=== PATIENT | male | born 1960 | race Caucasian/White ===

== ENCOUNTER 2023-07-02 10:54 | Day surgery (SDC) | payer MEDICAID ==
[~2023-07-02] VITALS: Ht 172.7 cm; Wt 72.8 kg
[2023-07-02] VITALS (8 sets, daily range): BP systolic 119–137; BP diastolic 66–82; PULSE 78–96; RESP 14–21; TEMP 98.4; O2SAT 93–96
[2023-07-02] MEDS ORDERED: CLON0.1T2 PO (11:32)
[2023-07-02] MEDS ORDERED: METO-384 PO (11:32)
[2023-07-02] MEDS ORDERED: LISI40TA13 PO (11:32)
[2023-07-02] MEDS ORDERED: AMLO-708 PO (11:32)
[2023-07-02] MEDS ORDERED: METF-1203 PO (11:32)
[2023-07-02] MEDS ORDERED: ASPI-1468 PO (11:32)
[2023-07-02] MEDS ORDERED: ROSU40TA22 PO (11:32)
[2023-07-02] MEDS ORDERED: CHOL20003 PO (11:32)
[2023-07-02] MEDS ORDERED: FLO0.4C PO (11:32)
[2023-07-02] MEDS ORDERED: HYDR-3686 PO (11:32)
[2023-07-02 11:36] LABS: BASOPHILS % (AUTO) 0.3 % (0-1); EOSINOPHILS # (AUTO) 0.1 X10'3 (0-0.9); EOSINOPHILS % (AUTO) 1.2 % (0-6); HEMATOCRIT 49.1 % (42.0-52.0); HEMOGLOBIN 16.4 g/dl (14.0-17.9); LYMPHOCYTES # (AUTO) 1.9 X10'3 (1.1-4.8); LYMPHOCYTES % (AUTO) 16.7 % (21-51); MEAN CORPUSCULAR HEMOGLOBIN 30.8 PG (27.0-31.0); MEAN CORPUSCULAR HGB CONC 33.5 g/dL (33.0-36.5); MEAN CORPUSCULAR VOLUME 92.2 FL (78-98); MEAN PLATELET VOLUME 7.3 FL (7.4-10.4); MONOCYTES # (AUTO) 0.6 X10'3 (0-0.9); MONOCYTES % (AUTO) 5.4 % (2-12); NEUTROPHILS # (AUTO) 8.7 X10'3 (1.8-7.7); NEUTROPHILS % (AUTO) 76.4 % (42-75); PLATELET COUNT 252 X10'3 (140-440); RED BLOOD COUNT 5.33 X10'6 (4.70-6.10); RED CELL DISTRIBUTION WIDTH 14.1 % (11.5-14.5); WHITE BLOOD COUNT 11.4 X10'3 (4.5-11.0)
[2023-07-02] MEDS ORDERED: LORazepam 0.5 MG tablet PO PRN (12:05)
[2023-07-02] MEDS ORDERED: diphenhydrAMINE 25mg capsule PO PRN (12:05)
[2023-07-02] MEDS ORDERED: normal saline 1,000 ML IV SCH (12:05)
[2023-07-02 12:21] LABS: INR 0.9 INR
[2023-07-02 12:29] LABS: ALBUMIN 4.6 G/DL (3.4-5.0); ANION GAP 16 (8-16); BLOOD UREA NITROGEN 19 MG/DL (7-18); BUN/CREATININE RATIO 16.2 (10.0-20.0); CALCIUM 9.8 MG/DL (8.5-10.1); CHLORIDE 96 MMOL/L (99-107); CREATININE 1.17 MG/DL (0.60-1.10); GLUCOSE 89 MG/DL (70-104); SODIUM 135 MMOL/L (135-145); TOTAL CARBON DIOXIDE 22.7 MMOL/L (24-32); eCRCL 63 ML/MIN; eGFR 63 ML/MIN
[2023-07-02] MEDS ORDERED: LIDOcaine 1% (10mg/ml)w/preservative inj. 20ml MDV ONE (15:49)
[2023-07-02] MEDS ORDERED: midazolam 1 mg/ML 2ml injection ONE ×3 (15:49→16:29)
[2023-07-02] MEDS ORDERED: fentaNYL/PF 50MCG/1 ML 2ML syringe ONE ×2 (15:49→16:29)
[2023-07-02] MEDS ORDERED: heparin 1,000unit/ml 10ml vial 10 ML ONE (15:49)
[2023-07-02] MEDS ORDERED: iohexol 350MG/ML 100ml bottle IV ONE ×2 (15:49→16:22)
[2023-07-02] MEDS ORDERED: clopidogrel 300mg tablet ONE (17:29)
[2023-07-02] MEDS ORDERED: HYDROcodone/acetaminophen 10/325mg tab PO PRN (18:10)
[2023-07-02] MEDS ORDERED: HYDROcodone/acetaminophen 5mg/325mg tablet PO PRN (18:10)
== END 2023-07-02 21:00 | disposition home or self-care (01) ==
LOC: SSTAY O 10:54
PROVIDERS: ATTEND Student in an Organized Health Care Education/Training Program
DX: I70.211 Atherosclerosis of native arteries of extremities with intermittent claudication, right leg (principal); I10 Essential (primary) hypertension; E11.9 Type 2 diabetes mellitus without complications; I25.10 Atherosclerotic heart disease of native coronary artery without angina pectoris; E78.5 Hyperlipidemia, unspecified; Z79.82 Long term (current) use of aspirin; Z79.84 Long term (current) use of oral hypoglycemic drugs; Z79.899 Other long term (current) drug therapy
CPT/HCPCS: 36246; 36248; 36415; 75630; 80048; 82948; 85025; 85610; 93005; 99152; 99153; C1876; C9765; J1644; J2250; J3010; J3490; J7030; Q0163; Q9967; 36245; 36247; A4615; A6258; C1725; C1760; C1761; C1769; C1894; C2623